=== PATIENT | male | born 1965 | race African-American/Black ===

== ENCOUNTER 2024-12-11 12:14 | Emergency (ER) | payer SELFPAY ==
[~2024-12-11] VITALS: Ht 180.3 cm; Wt 77.0 kg
[2024-12-11 12:23] VITALS: BP 105/90; PULSE 89; RESP 16; TEMP 36.8; O2SAT 98
[2024-12-11 14:19] LABS: BASOPHILS % 0.7 % (0.0-2.0); EOSINOPHILS % 3.0 % (0.0-5.0); HEMATOCRIT. 37.9 % (42.0-52.0); HEMOGLOBIN. 12.8 g/dL (14.0-18.0); LYMPHOCYTES % 45.2 % (20.0-50.0); MEAN PLATELET VOLUME 8.0 fl (7.4-10.4); MONOCYTES % 6.6 % (2.0-8.0); NEUTROPHILS % 44.5 % (40.0-76.0); PLATELET 164 x1000/uL (130-400); RED BLOOD CELL COUNT 3.63 mill/uL (4.7-6.1); RED CELL DISTRIBUTION WIDTH 13.8 % (11.6-14.6)
[2024-12-11 14:31] LABS: CREATININE 1.0 mg/dL (0.6-1.3)
[2024-12-11 14:32] LABS: UREA NITROGEN BLOOD 13 mg/dL (9-23)
== END 2024-12-11 17:16 | disposition home or self-care (01) ==
LOC: ER 12:14
DX: F10.129 Alcohol abuse with intoxication, unspecified (principal); G31.2 Degeneration of nervous system due to alcohol; G92.9 Unspecified toxic encephalopathy; Y90.8 Blood alcohol level of 240 mg/100 ml or more
CPT/HCPCS: 36415; 80048; 80320; 85025; 99284; G0480